=== PATIENT | male | born 1955 | race Caucasian/White ===

== ENCOUNTER → 2023-03-20 10:55 | Outpatient (CLI) | payer MEDICARE, OTHER, SELFPAY ==
--- NOTE | ~2023-03-20 | CT_ITS ---
Noncontrast CT scan of the lumbar spine CLINICAL HISTORY: Back pain TECHNIQUE: Axial noncontrast imaging of the lumbar spine was performed. Sagittal and coronal reformat lucien images were constructed. Dose reduction technique was used on this scan by utilizing automated ex posure control and iterative reconstruction technique. The dose-length product (DLP) was 959.86 mGy-c m. Findings: No acute fracture or subluxation seen. Interbody fusion devices are present the L4-L5 and L 5-S1 disc spaces. Remaining disc spaces are well preserved. At L1-L2, there is no disc bulge or herniation. There is minimal facet joint arthropathy. No spinal c anal stenosis or neural foraminal narrowing evident. At L2-L3, there is no significant disc bulge or herniation. There is mild facet arthropathy. No spina l canal stenosis or definite neural foraminal narrowing. At L3-L4, disc bulge and facet arthropathy contribute to probable moderate thecal sac compression and probable right lateral recess stenosis. There is minimal bilateral neural foraminal narrowing. At L4-L5, streak artifact limits evaluation. No definite canal stenosis. There is moderate bilateral neural foraminal narrowing. At L5-S1, streak artifact limits evaluation. No definite canal stenosis. There is severe right neural foraminal narrowing and moderate to severe left neural foraminal narrowing. Paravertebral soft tissues are unremarkable. IMPRESSION: Interbody fusion devices at L4-L5 and L5-S1. Moderate degenerative spondylosis at L3-L4, L4-L5, and L5-S1, as detailed above. Reviewed, dictated and finalized at [facility]. IMPRESSION: Interbody fusion devices at L4-L5 and L5-S1. Moderate degenerative spondylosis at L3-L4, L4-L5, and L5-S1, as detailed above .
--- NOTE | ~2023-03-20 | MR_ITS ---
MRI of the cervical spine Clinical History: Spondylosis Technique: Axial T2-weighted and gradient images, and sagittal T1-weighted, T2-weighted, and STIR mayela ges were acquired. Findings: No fracture and 5. Minimal grade 1 retrolisthesis of C6 over C7 noted. No suspicious bone m arrow signal abnormality seen. At C2-C3, there is minimal disc bulge. No spinal canal stenosis, cord compression, or neural foramina l narrowing. At C3-C4, there is minimal disc bulge. No spinal canal stenosis, cord compression, or neural foramina l narrowing. At C4-C5, there is degenerative disc narrowing with minimal bulge and left-sided facet arthropathy. T here is left neural foraminal narrowing. Right neural foramen preserved. No canal stenosis or debra c ord compression. At C5-C6, disc osteophyte complex is present with mild canal stenosis and mild cord compression ventr ally. There is probable bilateral neural foraminal narrowing, left worse than right. At C6-C7, there is disc osteophyte complex with minimal flattening the ventral cord. There is right n eural foraminal narrowing. Left neural foramen preserved. No abnormal signal seen in the spinal cord. Paravertebral soft tissues are unremarkable. Impression: Jkle-fj-rdittnad degenerative spondylosis, most pronounced at C4-C5, C5-C6, and C6-C7, as detailed ab ove. Reviewed, dictated and finalized at [facility]. Impression: [id number]-[id number] degenerative spondylosis, most pronounced at C4-C5, C5-C6, and C6-C7, as detailed above.
== END ==
PROVIDERS: PCP Neurological Surgery; Visit Provider Neurological Surgery
DX: M47.812 Spondylosis without myelopathy or radiculopathy, cervical region (principal); M47.816 Spondylosis without myelopathy or radiculopathy, lumbar region; Z98.1 Arthrodesis status
CPT/HCPCS: 72131; 72141

== ENCOUNTER → 2023-06-02 10:42 | Outpatient (CLI) | payer MEDICARE, OTHER, SELFPAY ==
--- NOTE | ~2023-06-02 | XR_ITS ---
EXAMINATION: XR lumbar spine min 4V DATE: 06/02/2023 11:24 INDICATION: Spondylosis without myelopathy or radiculopathy. TECHNIQUE: 5 views of lumbar spine including flexion and extension views were obtained. COMPARISON: CT lumbar spine 03/20/2023 FINDINGS: S1 is a transitional segment. There is 4 degrees dextrocurvature of lumbar spine. There are changes of anterior fusion procedure at L4-L5 and L5-S1 with interbody devices. There is no abnormal motion with flexion or extension. Vertebral body heights are normal. Intervertebral disc heights are normal. There is multilevel severe facet joint osteoarthritis. Surgical clips in the right upper katy drant are likely from cholecystectomy. IMPRESSION: 1. Anterior fusion procedures at L4-L5 and L5-S1. 2. Mild lumbar spondylosis. Reviewed, dictated and finalized at location A.
== END ==
PROVIDERS: PCP Neurological Surgery; Visit Provider Neurological Surgery
DX: M47.816 Spondylosis without myelopathy or radiculopathy, lumbar region (principal); Z98.1 Arthrodesis status
CPT/HCPCS: 72110

== ENCOUNTER 2023-09-24 09:15 | Outpatient (CLI) | payer MEDICARE, OTHER, SELFPAY ==
--- NOTE | 2023-09-24 09:31 | ECG_ITS ---
Measurements Intervals Logan Rate: 64 P: 42 GA: 166 QRS: -1 QRSD: 105 T: 55 QT: 402 QTc: 415 Interpretive Statements SINUS RHYTHM CANNOT RULE OUT OLD iNFERIOR MYOCARDIAL INFARCTION NO PREVIOUS ECG AVAILABLE FOR COMPARISON Electronically Signed On 09-24-2023 11:22:47 CDT by Abena Mcgee M.D.
[2023-09-24 09:55] LABS: Appearance Urine Clear (Clear); Bilirubin Urine Negative (Negative); Blood Urine Negative (Negative); Color Urine Yellow (Yellow); Glucose Urine UA Negative (Negative); Ketones Urine Negative (Negative); Leukocyte Esterase Ur Negative LEU/UL (Negative); Nitrate Urine Negative (Negative); Protein Urine Negative (Negative); Specific Grav Ur 1.022 (1.001-1.035)
[2023-09-24 09:57] LABS: Hematocrit 46.2 % (42.0-52.0); Hemoglobin 14.9 g/dL (14.0-18.0); Mean Corpuscular HGB Conc 32.3 g/dl (32-36); Mean Corpuscular Hemoglobin 30.3 pg (26-34); Mean Corpuscular Volume 94.1 fl (80-100); Mean Platelet Volume 10.4 fl (7.4-10.4); Platelet Count Result 166 k/mm3 (150-375); Red Blood Count 4.91 M/mm3 (4.6-6.20); Red Cell Distribution Width 12.9 % (11.5-14.5)
[2023-09-24 10:03] LABS: Anion Gap 5 mmol/L (8-16); Blood Urea Nitrogen 19 mg/dL (9-20); Calcium 9.5 mg/dL (8.4-10.2); Carbon Dioxide 32 mmol/L (22-30); Chloride 101 mmol/L (98-107); Estimated Glomerular Filt Rate > 60; Glucose 128 mg/dL (65-110); Potassium 4.2 mmol/L (3.4-5.0); Sodium 138 mmol/L (137-145)
[2023-09-24 10:12] LABS: Add Urine Microscopic? NO
[2023-09-24 10:16] LABS: INR 0.9; Prothrombin Time 12.6 Seconds (11.1-14.7)
[2023-09-24 10:17] LABS: Partial Thromboplastin Time 30.2 SECONDS (22.3-36.8)
== END 2023-09-24 09:16 | disposition home or self-care (01) ==
PROVIDERS: Visit Provider Neurological Surgery
DX: M47.816 Spondylosis without myelopathy or radiculopathy, lumbar region (principal); Z01.818 Encounter for other preprocedural examination
CPT/HCPCS: 36415; 80048; 81003; 85027; 85610; 85730; 86850; 86900; 86901; 93005

== ENCOUNTER 2023-10-01 18:54 | Observation (INO) | payer MEDICARE, OTHER, SELFPAY ==
[2023-09-23 11:38] VITALS: BMI 29.9
--- NOTE | 2023-09-23 11:43 | PC.NURSE ---
Report to the Outpatient Waiting Room, entrance under the green pavilion located off [facility], at time 6:00 on date 09/30/23. Planned Procedure Time: 7:30. Time changes happen often and if your time is changed the preop area will call you the afternoon before. - You and your visitor will be asked to self-screen and do not enter if you have any COVID symptoms. - A mask is optional within the hospital at this time. Patients may have clear liquids (water, carbonated beverages, clear teas, apple juice) until 3 hours prior to surgery (4:30) with a maximum of 20 ounces. - No food from midnight until time of surgery Take the following medications with a SIP of water the morning of surgery: N/A DO NOT STOP ANY OF YOUR OTHER PRESCRIPTION MEDICATIONS PRIOR TO SURGERY ?EXCEPT THE FOLLOWING Medications to discontinue per physician: N/A Date to take last dose: N/A Please no make-up, nail danish, hairspray, perfume, deodorant, or body powder the day of surgery. No jewelry (including any body piercings) or valuables the day of surgery, leave them at home. Please take a shower or bath the night before, or the morning of, surgery with an antibacterial soap. Wear comfortable, loose fitting clothing. - Jewelry must be removed prior to entering the operating room. Rings and piercings that are not removed may be cut off. - The hospital will not accept responsibility for valuables. - Please leave all valuables, including medications, at home the day of surgery. If you are going home after surgery, a licensed special client bus driver must drive you home. - NO public transportation without another adult if you receive anesthesia. - We recommend that an adult stay with you for 24 hours following discharge. - We also recommend that you do not drive, make important decision, drink alcoholic beverages, or take any drugs that were not prescribed by your health care provider for at least 24 hours after your discharge time. Follow any additional instructions given to you from your surgeon. If you or anyone in your household have experienced Covid symptoms in the past week, please notify your surgeon or the nurse liaison at the phone number below for possible testing. Telephone instructions given to PT - HERNAN GARCIA and asked if any additional questions and then verbalized understanding. Patient advised to call surgeon office or pre surgery nurse liaison [phone] if any additional questions.
[2023-09-30] VITALS (15 sets, daily range): BP systolic 98–154; BP diastolic 57–84; PULSE 72–91; RESP 12–20; TEMP 36.5–36.8; O2SAT 93–100
[2023-09-30] MEDS: LACTATED RINGERS 1,000 ML 30 ML IV CONT ×2 (06:57→11:43)
--- NOTE | 2023-09-30 07:26 | P.PNAN_ITS ---
Anes - Initial Pre Proc Eval Procedure: Operation Date: 09/30/23 07:30 Proposed Procedures p L4-5, L5-S1 Post Lateral Instrumentation Fusion with Inner Transverse Bone Graft and Ifactor - Nicholas Brown MD Date/Time: 09/30/23 07:26 Surgeon: Nicholas Brown MD Pre Op Diagnosis: L4-5, L5-S1 spondylosis Patient Data Age: 68 Gender: M Height: 1.91 m Weight: 110.9 kg Last Vital Signs Temp 97.8 F 09/30/23 06:00 Pulse 72 09/30/23 06:00 Resp 16 09/30/23 06:00 BP 144/76 H 09/30/23 06:00 Pulse Ox 99 09/30/23 06:00 O2 Del Method Room Air 09/30/23 06:00 Allergies Allergy/AdvReac Type Severity Reaction Status Date / Time No Known Allergies Allergy Verified 09/30/23 06:03 Home Medications Medication Instructions Recorded Confirmed Type No Home Medications 09/23/23 09/23/23 History Patient hx anesthesia problems: none Family hx anesthesia problems: none Results Review: All pre-operative results and documents have been reviewed as part of the pre- operative evaluation. [facility] Family History Family History Father Alcohol abuse Hypertension Heart disease Cerebrovascular accident Mother Diabetes mellitus Hypertension Social History Social History Social History: Neil is very confident filling out medical forms. In the last 12 months he has not received any assistance from an organization or program. Smoking packs per day: 1.5 Smoking cigarettes per day: 30.0 Years smoked: 15 Smoking pack-years: 22.50 Smoking status: Former smoker Tobacco type: cigarettes Second hand tobacco smoke exposure: No Smoking end date: 12/01/90 Alcohol intake: never Substance use: never Substance use type: does not use Lack of Transportation: No Lack of Food: Never True Current Housing: I Have Housing Concerned About Future Housing: No Difficulty Paying Gas/Electric Bills: No Difficulty Paying for Meds: No Currently Unemployed: No Education: Bachelor's Degree Difficulty w/ Childcare or Family Care: No Living arrangements: alone Spiritual care concerns: No Anes - Eval Final PreProcedure Day of Procedure 09/30/23 07:26 Patient weight: obese Heart: regular rate and rhythm Lungs: clear to auscultation Airway: Mallampati scale class II Neurological: alert and oriented Last oral intake: >/= 8 hours ASA classification: II Emergent: no Anesthetic plan: proceed Anesthesia type and monitoring: general ETT and standard monitoring Results Review: All pre-operative results and documents have been reviewed as part of the pre- operative evaluation. Informed Consent: The patient's anesthetic plan and its attendant risks and benefits were discussed with the patient/family/POA. Questions were solicited and answers provided to the satisfaction of the patient/family/POA.
--- NOTE | 2023-09-30 07:35 | PM.IMHP ---
H&P: HPI History of Present Illness Date/Time: 09/30/23 07:35 Chief Complaint: Back and leg pain Narrative: Adan is a 68-year-old gentleman with back and leg pain related to pathology at L4-5 and L5-S1 presents for posterolateral fusion at those levels. He has not changed appreciably since we last saw him. He is not having bowel or bladder difficulty or other constitutional problems. He does not have specific muscle group weakness or dermatomal numbness. Review of Systems Review of Systems: Patient denies shortness of breath, cough, fever, chills, nausea, vomiting, weight loss, weight gain, chest pain, dysuria. He has back and leg pain as above. His review of systems is otherwise negative on 12 systems except as noted elsewhere. [facility] Family History Family History Father Alcohol abuse Hypertension Heart disease Cerebrovascular accident Mother Diabetes mellitus Hypertension Social History Social History Social History: Neil is very confident filling out medical forms. In the last 12 months he has not received any assistance from an organization or program. Smoking packs per day: 1.5 Smoking cigarettes per day: 30.0 Years smoked: 15 Smoking pack-years: 22.50 Smoking status: Former smoker Tobacco type: cigarettes Second hand tobacco smoke exposure: No Smoking end date: 12/01/90 Alcohol intake: never Substance use: never Substance use type: does not use Lack of Transportation: No Lack of Food: Never True Current Housing: I Have Housing Concerned About Future Housing: No Difficulty Paying Gas/Electric Bills: No Difficulty Paying for Meds: No Currently Unemployed: No Education: Bachelor's Degree Difficulty w/ Childcare or Family Care: No Living arrangements: alone Spiritual care concerns: No Meds Home Medications and Allergies Home Medications Medication Instructions Recorded Confirmed Type No Home Medications 09/23/23 09/23/23 History Allergies Allergy/AdvReac Type Severity Reaction Status Date / Time No Known Allergies Allergy Verified 09/30/23 06:03 Vital Signs Vital Signs - 24 hr 09/30/23 06:00 Temperature 97.8 F Pulse Rate 72 Respiratory Rate 16 Blood Pressure 144/76 H Pulse Oximetry 99 Oxygen Delivery Room Air Exam Narrative: Strength is 5/5 in all muscle groups of the bilateral lower extremities. Sensation is intact light touch throughout the lower extremities. 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 I described to him again that operation, its risks, potential benefits, the operative and postoperative course in detail and answered all his questions personally. Indicates understanding and elects to proceed with that operation.
--- NOTE | 2023-09-30 07:39 | WPDHPUPDATE1 ---
History and Physical Update Update Date/Time: 09/30/23 07:39 History and Physical has been reviewed, including an updated exam of the patient. There are NO changes in the patient's condition. Risks, benefits, and alternatives have been discussed and questions answered. Patient agrees to proceed with procedure.
[2023-09-30] MEDS: ceFAZolin 2 GM/D5W 50 ML 2 GM/50 ML BAG IVPB (07:47)
[2023-09-30] MEDS: LIDO 1%/EPINEPHRINE 1:100,000 50 ML VIAL 10 ML INFILTRATE (08:23)
--- NOTE | 2023-09-30 11:20 | SUR.OPER ---
400mL of clear yellow urine drained from kelly
--- NOTE | 2023-09-30 11:48 | W.PM.PROC2 ---
Procedure Note - Detailed Date of Procedure 09/30/23 Pre-op Diagnosis L4-5, L5-S1 spondylosis Post-op Diagnosis Same Procedure Performed L4-5 and L5-S1 complete laminectomy and bilateral facetectomy, L4-5 and L5-S1 pedicle screw instrumentation, L4-5 and L5-S1 inner transverse posterolateral fusion utilizing local autograft bone and I factor Surgeon Nicholas Brown MD Anesthesia General Description of Procedure Patient was brought to the operating room in supine position, was sedated, intubated placed under general anesthesia in routine fashion. He was then turned into the prone position on a David frame. The of operation back was examined, marked for incision, prepped and draped in routine sterile fashion. Incision was marked over the L4 through S1 spinous processes in the midline. This area was injected with 0.5% lidocaine with [id number] epinephrine the intravenous antibiotics given prior to incision. Incision was made with a 10 blade scalpel down to the lumbodorsal fascia. A subperiosteal dissection of the muscle and soft tissue away from spinous process and lamina at L4 through S1 was performed with a subperiosteal elevator and Bovie cautery. A verifying x-rays obtained to verify the level of operation. The L4 and L5 spinous processes were removed with a Samson rongeur. Kerrison punches, curved curette and a Leksell rongeur were used to remove lamina in the midline until the soft contents of the canal were encountered. A Midas Romeo drill was used to resect the pars bilaterally. This was done at L4 and L5. The inferior articular process and facet these levels was then removed. The spaces spinous processes were stripped few soft tissue and morselized for later use interbody autograft. Kerrison punches and curved curettes were used to define a plane with the dura and removed bone and ligament flush with the pedicle and through the foramina widely decompressing the exiting nerve roots. Pedicle screw instrumentation was performed at L4 through 5 by observing and palpating the pedicle awl hole was made and superior to the process above the pedicle using Midas Romeo drill. The pedicle was then cannulated with a pedicle probe, checked for continuity with the ball probe, tapped with a 5.5 mm tap and a 6.5 x 50 mm screws placed on each side at L4-L5 and a 6.5 x 45 mm screw at S1. The lateral masses were decorticated including the transverse processes. Morselized local autograft bone mixed with I factor was packed against these decorticated surfaces bilaterally. 60 mm rods were placed into the screw heads on either side and secured in position using the caps that purpose. These were definitively tightened with a torque and anti torque device. The wound was copiously irrigated with bacitracin irrigation all bleeding stopped with bipolar Bovie cautery and Gelfoam thrombin powder. The irrigation was done before placement of the autograft and I factor. A medium Hemovac drain was left in the subfascial position. Out the inferior right of the incision. The wound was then closed in layered fashion with 2-0 Vicryl interrupted sutures in the lumbodorsal fascia and Lia's layer. 3-0 Vicryl buried interrupted sutures were placed in the dermis the skin was closed with a running 4-0 Monocryl subcuticular stitch and dressed with Dermabond. The patient was allowed to wake up in the operating room and was taken to the recovery room in stable condition. There were no immediate complications of this operation. All counts were reported correct at case. Blood loss was 500 cc. The patient was neurologically at his baseline postoperatively. Estimated Blood Loss 500 IV Fluids 2,000 Drains Yes Complications None Condition Stable Disposition PACU [facility] Billing Surgery - Charge Forward: Surgery Billing
[2023-09-30] MEDS: fentaNYL CITRATE INJ (*CRX) 100 MCG/2 ML VIAL 25 MCG IV PUSH ×8 (12:02→12:57)
[2023-09-30] MEDS: CYCLOBENZAPRINE HCL 10 MG TABLET PO (12:30)
--- NOTE | 2023-09-30 13:21 | ADMGEN ---
This patient, Neil Mckeon, was admitted to 2 Medical Room 258-01. Patient/family oriented to hospital policies and general routines including ID bracelet, bed and alarms, visiting hours, pain management, procedures, bathroom and other care routines, personal items, smoking policy, room service/diet, and visiting hours. Information on how to activate the Rapid Response Team has been discussed. Patient/Family are encouraged to report perceived risks to care and to ask questions if they do not understand what they are told or what they should do.
[2023-09-30] MEDS: ceFAZolin 1 GM/NS 50 ML 1 GM/50 ML BAG IVPB ×2 (14:35→22:46)
[2023-09-30] MEDS: KCL 20 MEQ/D5/0.45% SOD CHL 1,000 ML 100 ML IV CONT (15:08)
[2023-09-30] MEDS: HYDROcodone/acetaminophen (*CRX) 10-325 MG TABLET 1 TAB PO ×2 (17:03→23:20)
[2023-09-30] MEDS: DOCUSATE SODIUM 100 MG CAPSULE PO (22:46)
[2023-10-01] VITALS (7 sets, daily range): BP systolic 92–136; BP diastolic 49–72; PULSE 75–94; RESP 16–20; TEMP 36.5–37.3; O2SAT 95–98
--- NOTE | ~2023-10-01 | XR_ITS ---
EXAMINATION: XR fluoroscopy no charge DATE: 09/30/2023 11:28 INDICATION: Lumbar spinal fusion TECHNIQUE: 4 fluoroscopic images of the lumbar spine were obtained during procedure performed by Dr. Brown. Radiologist was not present for the imaging or procedure. The amount of fluoroscopy time us ed during this procedure was 0.1 minutes. COMPARISON: Lumbar spine radiographs dated 06/02/2023 FINDINGS: Again seen are surgical interbody fusion devices at L4-L5 and L5-S1. Tissue retractors and lap sponge markers project over a lucent surgical bed posterior to the lower lumbar spine. Final images demonst rate placement of bilateral pedicle screws for posterior spinal fusion at L4, L5 and S1. No correspon ding vertical rods are visualized. IMPRESSION: 1. Fluoroscopy utilized during instrumented L4-S1 posterior spinal fusion with changes of prior L4-S1 anterior spinal fusion. See procedure note for further detail. Reviewed, dictated and finalized at location A. IMPRESSION: 1. Fluoroscopy utilized during instrumented L4-S1 posterior spinal fusion with changes of prior L4-S1 anterior spinal fusion. See procedure note for further d etail.
[2023-10-01] MEDS: ceFAZolin 1 GM/NS 50 ML 1 GM/50 ML BAG IVPB ×3 (05:33→21:02)
--- NOTE | 2023-10-01 09:02 | WPDANESPN ---
Anes - Prog Note Post-Op Date/Time: 10/01/23 09:02 Cardiovascular status: normal Respiratory status: normal Airway patency: baseline Mental status: baseline Post-Op hydration status: normal Vital Signs: Last Vital Signs Temp 97.7 F 10/01/23 04:07 Pulse 75 10/01/23 04:07 Resp 20 10/01/23 04:07 BP 92/49 L 10/01/23 04:07 Pulse Ox 95 10/01/23 04:07 O2 Del Method Room Air 10/01/23 08:10 O2 Flow Rate 6 09/30/23 12:10 Pain Score (VAS): 0/10 I/O: Intake & Output 09/30/23 10/01/23 10/01/23 23:59 07:59 15:59 Intake Total 290 290 Output Total 45 1290 Balance 245 -1000 Post-procedural complaints: none Patient Feedback: Patient satisfied with anesthetic care.
[2023-10-01] MEDS: DOCUSATE SODIUM 100 MG CAPSULE PO ×2 (09:25→21:02)
--- NOTE | 2023-10-01 16:42 | WPDNEUROSGPN ---
Progress Note: A&P Assessment and Plan (1) Status post lumbar spinal fusion: Code(s): Z98.1 - Arthrodesis status Status: Acute Plan s/p L4-5, L5-S1 laminectomies, posterolateral fusion on 09/30 Plan: -Anticipate discharge tomorrow morning due to ride issues -Keep hemovac drain tonight -Pain control Subjective Date/time seen: 10/01/23 16:42 Interval history: Doing very well with pain under good control. Ambulated in halls without difficulty. Tolerating PO and voiding independently. Review of Systems Review of Systems: All systems reviewed & are unremarkable except as noted in HPI and below Exam Narrative: AOx4 Full strength in lower extremities Sensation intact Incision c/d/i with dermabond in place Hemovac drain in place Objective Data Vital Signs Vital Signs: Vital Signs - 24 hr 09/30/23 17:00 09/30/23 20:07 10/01/23 00:07 Temperature 97.8 F 98.0 F 97.9 F Pulse Rate 88 86 82 Respiratory Rate 18 20 20 Blood Pressure 135/76 109/64 113/60 Pulse Oximetry 98 94 95 Oxygen Delivery 09/30/23 22:30 10/01/23 04:07 10/01/23 08:10 Temperature 97.7 F Pulse Rate 75 Respiratory Rate 20 Blood Pressure 92/49 L Pulse Oximetry 95 Oxygen Delivery Room Air Room Air 10/01/23 09:50 10/01/23 10:44 10/01/23 13:07 Temperature 98.4 F 98.4 F Pulse Rate 87 87 85 Respiratory Rate 16 16 16 Blood Pressure 118/63 115/62 Pulse Oximetry 95 95 97 Oxygen Delivery Room Air Intake/Output Intake/Output: Intake & Output 09/28/23 09/29/23 09/30/23 10/01/23 23:59 23:59 23:59 23:59 Intake Total 2640 650 Output Total 215 1290 Balance 2425 -640 Meds/Results Medications: Active Medications Generic Name Dose Route Start Last Admin Trade Name Freq PRN Reason Stop Dose Admin Hydrocodone Bitart/Acetaminophen 1 tab 09/30/23 13:07 Hydrocodone/Acetaminophen (*Crx) 5-325 Mg Tablet PO Q4H PRN Mild Pain (1-3) Hydrocodone Bitart/Acetaminophen 1 tab 09/30/23 13:07 09/30/23 23:20 Hydrocodone/Acetaminophen (*Crx) 10-325 Mg Tablet PO 1 tab Q4H PRN Administration Moderate Pain (4-6) Al Hydrox/Mg Hydrox/Simethicone 20 ml 09/30/23 13:07 Mag Hydrox/Al Hydrox/Simeth 30 Ml Udc PO Q4H PRN Indigestion/Heartburn Bisacodyl 10 mg 09/30/23 13:07 Bisacodyl 10 Mg Suppository RECTAL DAILY PRN Constipation Cyclobenzaprine HCl 10 mg 09/30/23 12:23 09/30/23 12:30 Cyclobenzaprine Hcl 10 Mg Tablet PO 10 mg TID PRN Administration Muscle Spasms Docusate Sodium 100 mg 09/30/23 21:00 10/01/23 09:25 Docusate Sodium 100 Mg Capsule PO 100 mg Q12HR REBEKAH Administration Hydromorphone HCl 0.5 mg 09/30/23 13:07 Hydromorphone Hcl Inj (*Crx) 1 Mg/Ml Syr IV PUSH Q2H PRN Pain Rated 7-10 Cefazolin Sodium 1 gm in 50 mls @ 100 mls/hr 09/30/23 14:00 10/01/23 14:52 Ancef 1 Gm/Ns 50 Ml IVPB 100 mls/hr Q8HR REBEKAH Administration Ondansetron HCl 4 mg 09/30/23 13:07 Ondansetron Inj 4 Mg/2 Ml Vial IV PUSH Q8H PRN Nausea And Vomiting Senna/Docusate Sodium 1 tab 09/30/23 13:07 Senna/Docusate Sodium Tablet PO HS PRN Constipation Radiology Results: ITS Impressions Fluoroscopy 09/30/23 13:52 IMPRESSION: 1. Fluoroscopy utilized during instrumented L4-S1 posterior spinal fusion with changes of prior L4-S1 anterior spinal fusion. See procedure note for further detail.
[2023-10-01] MEDS: HYDROcodone/acetaminophen (*CRX) 5-325 MG TABLET 1 TAB PO (18:30)
[2023-10-02 00:27] VITALS: BP 138/66; PULSE 91; RESP 16; TEMP 36.9; O2SAT 99
[2023-10-02] MEDS: HYDROcodone/acetaminophen (*CRX) 5-325 MG TABLET 1 TAB PO ×2 (02:58→08:50)
[2023-10-02 06:09] VITALS: BP 124/63; PULSE 82; RESP 16; TEMP 36.6; O2SAT 94
[2023-10-02] MEDS: ceFAZolin 1 GM/NS 50 ML 1 GM/50 ML BAG IVPB (06:28)
[2023-10-02 08:50] VITALS: RESP 16; O2SAT 94
[2023-10-02] MEDS: DOCUSATE SODIUM 100 MG CAPSULE PO (08:50)
[2023-10-02 10:30] VITALS: BP 122/67; PULSE 82; RESP 16; TEMP 36.6; O2SAT 94
--- NOTE | 2023-10-02 11:56 | WPDNEUROSGPN ---
Progress Note: A&P Assessment and Plan (1) Status post lumbar spinal fusion: Code(s): Z98.1 - Arthrodesis status Status: Acute Plan Patient doing well neurologically Will d/c drain this am Mobilize and likely d/c to home later today Subjective Date/time seen: 10/02/23 11:56 Interval history: patient notes improved low back and lower extremity symptoms drain output decreased Exam Narrative: Awake alert oriented x 3 Speech CF BERTRAM EOMI Face= TML MAEW with good strength Objective Data Vital Signs Vital Signs: Vital Signs - 24 hr 10/01/23 13:07 10/01/23 18:06 10/01/23 19:56 Temperature 98.4 F 99.1 F 98.1 F Pulse Rate 85 91 94 Respiratory Rate 16 16 18 Blood Pressure 115/62 136/72 132/65 Pulse Oximetry 97 98 98 Oxygen Delivery 10/02/23 00:27 10/02/23 06:09 10/02/23 08:50 Temperature 98.5 F 97.8 F Pulse Rate 91 82 Respiratory Rate 16 16 16 Blood Pressure 138/66 124/63 Pulse Oximetry 99 94 94 Oxygen Delivery Room Air 10/02/23 10:30 Temperature 98 F Pulse Rate 82 Respiratory Rate 16 Blood Pressure 122/67 Pulse Oximetry 94 Oxygen Delivery Intake/Output Intake/Output: Intake & Output 09/29/23 09/30/23 10/01/23 10/02/23 23:59 23:59 23:59 23:59 Intake Total 2640 1340 620 Output Total 215 2190 780 Balance 0445 -888 -362 Meds/Results Medications: Active Medications Generic Name Dose Route Start Last Admin Trade Name Freq PRN Reason Stop Dose Admin Hydrocodone Bitart/Acetaminophen 1 tab 09/30/23 13:07 10/02/23 08:50 Hydrocodone/Acetaminophen (*Crx) 5-325 Mg Tablet PO 1 tab Q4H PRN Administration Mild Pain (1-3) Hydrocodone Bitart/Acetaminophen 1 tab 09/30/23 13:07 09/30/23 23:20 Hydrocodone/Acetaminophen (*Crx) 10-325 Mg Tablet PO 1 tab Q4H PRN Administration Moderate Pain (4-6) Al Hydrox/Mg Hydrox/Simethicone 20 ml 09/30/23 13:07 Mag Hydrox/Al Hydrox/Simeth 30 Ml Udc PO Q4H PRN Indigestion/Heartburn Bisacodyl 10 mg 09/30/23 13:07 Bisacodyl 10 Mg Suppository RECTAL DAILY PRN Constipation Cyclobenzaprine HCl 10 mg 09/30/23 12:23 09/30/23 12:30 Cyclobenzaprine Hcl 10 Mg Tablet PO 10 mg TID PRN Administration Muscle Spasms Docusate Sodium 100 mg 09/30/23 21:00 10/02/23 08:50 Docusate Sodium 100 Mg Capsule PO 100 mg Q12HR REBEKAH Administration Hydromorphone HCl 0.5 mg 09/30/23 13:07 Hydromorphone Hcl Inj (*Crx) 1 Mg/Ml Syr IV PUSH Q2H PRN Pain Rated 7-10 Cefazolin Sodium 1 gm in 50 mls @ 100 mls/hr 09/30/23 14:00 10/02/23 06:58 Ancef 1 Gm/Ns 50 Ml IVPB Infused Q8HR REBEKAH Infusion Ondansetron HCl 4 mg 09/30/23 13:07 Ondansetron Inj 4 Mg/2 Ml Vial IV PUSH Q8H PRN Nausea And Vomiting Senna/Docusate Sodium 1 tab 09/30/23 13:07 Senna/Docusate Sodium Tablet PO HS PRN Constipation Radiology Results: ITS Impressions Fluoroscopy 09/30/23 13:52 IMPRESSION: 1. Fluoroscopy utilized during instrumented L4-S1 posterior spinal fusion with changes of prior L4-S1 anterior spinal fusion. See procedure note for further detail.
--- NOTE | 2023-10-07 17:22 | PM.DS ---
DS: Admitting Diagnosis Discharge Date 10/02/23 Admitting Diagnosis L4-5 and L5-S1 spondylosis. Previous procedure at these levels anteriorly DS: Discharge Diagnosis Discharge Diagnosis (1) Lumbar spondylosis: Code(s): M47.816 - Spondylosis without myelopathy or radiculopathy, lumbar region Status: Acute DS: Summary Hospital Course Hospital Course: The patient was taken to the operating room on 09 29 23 with the aforementioned operation was performed without complication. This was in L4-5 and L5-S1 posterolateral instrumented fusion as the patient had some sort of experimental device placed anteriorly and continued to have substantial pain related to the movement at these levels. He was taken to the floor postoperatively. On postoperative day 1 his Roman catheter and drain removed. Physical and occupational therapy were involved in his care. By postop day 3 he was eating, ambulating, emptying his bladder is pain was under control with by mouth pain medicine. His wound remained clean dry and intact. He was afebrile with stable vital signs. He was therefore allowed to be discharged home. Status at Discharge Functional status at discharge: independent ambulation Time Spent with Patient Time attestation: Total time spent providing and/or coordinating discharge services: Discharge Plan Discharge Attending physician on discharge: Nicholas Brown Consulting providers: Benson Mon; Zeus Jim; Beatriz Lara; Vasu Brock; Beatriz Rollins Discharging Clinician: Beatriz Lara Patient Disposition: Home, Self-Care Activity: may shower, may drive after 2 weeks and other - see discharge instructions Diet: as tolerated Wound Care Instructions: incision open to air Patient Instructions: Antibiotic Form Stand Alone Forms: General Discharge Information Follow-up/Referrals: Beatriz Lara MD [Physician] - (Follow up with Dr. Brown in 4-6 weeks) Nicholas Brown MD [Physician] - Discharge Medications: New hydrocodone-acetaminophen 5-325 mg tablet 1 tablet PO Q4H PRN (Reason: pain) Qty: 30 0RF cyclobenzaprine 10 mg tablet 10 mg PO TID PRN (Reason: muscle spasm) Qty: 30 0RF Date of admission: 10/01/23 18:54 Primary Care Provider: PHYSICIAN,[employer] DIRECTOR Admitting Provider: Nicholas Brown Attending physician on admission: Nicholas Brown Condition: Stable
== END 2023-10-02 13:00 | disposition home or self-care (01) ==
LOC: ANH2MED 18:57 → ANHSURGERY 19:00 → ANH2MED 19:00
PROVIDERS: Admitting Provider Neurological Surgery; Visit Provider Neurological Surgery
PROC: (CPT 22612; principal; 2023-09-30 07:30)
DX: M47.816 Spondylosis without myelopathy or radiculopathy, lumbar region (principal); M47.817 Spondylosis without myelopathy or radiculopathy, lumbosacral region; E66.9 Obesity, unspecified; Z68.30 Body mass index [BMI] 30.0-30.9, adult; Z87.891 Personal history of nicotine dependence
CPT/HCPCS: 22612; 22614; 22842; 20936; 97161; 97165; 97530; 97535; 99199; A9270; C1713; G0378; J0690; J1100; J1170; J2250; J2371; J2405; J2704; J3010; J3480; J7120

== ENCOUNTER 2024-02-10 11:28 | Outpatient (CLI) | payer MEDICARE, OTHER, SELFPAY ==
--- NOTE | ~2024-02-10 | XR_ITS ---
EXAM: XR lumbar spine 2-3V DATE: 02/10/2024 11:43 HISTORY: Z48.89 - Encounter for other specified surgical aftercare . COMPARISON: 06/02/2023. FINDINGS: 5 nonrib-bearing lumbar-type vertebral bodies. Uncomplicated posterior lumbar fusion hardw are spanning L4-S1. The superior pedicle screw on the left projects slightly proud of the superior en dplate. Interbody devices at L4-5 and L5-S1, in good position. Pedicles intact. Normal vertebral body alignment. Vertebral body heights preserved. Moderate degenerative disc disease at L4-5. Severe dege nerative disc disease at L5-S1. Rudimentary disc at S1-S2. Multilevel facet hypertrophy/sclerosis No fracture or dislocation. IMPRESSION: Posterior fusion hardware, the left superior pedicle screw projects beyond the cortex of the superior endplate of L4. No hardware fracture or evidence of loosening/infection. Multilevel dege nerative disc disease and facet arthropathy. Reviewed, dictated and finalized at location K. IMPRESSION: Posterior fusion hardware, the left superior pedicle screw projects beyond the cortex of the superior endplate of L4. No hardware fracture or evid ence of loosening/infection. Multilevel degenerative disc disease and facet art hropathy.
== END 2024-02-10 11:29 | disposition home or self-care (01) ==
LOC: ANHIMG 11:31
PROVIDERS: Visit Provider Physician Assistant
DX: Z48.89 Encounter for other specified surgical aftercare (principal); Z98.1 Arthrodesis status
CPT/HCPCS: 72100